=== PATIENT | female | born 1985 | race Caucasian/White ===

== ENCOUNTER 2024-06-12 01:01 | Emergency (ER) | payer MEDICAID ==
[~2024-06-12] VITALS: Ht 165.1 cm; Wt 75.0 kg
[2024-06-12 01:07] VITALS: BP 120/62; PULSE 57; TEMP 98.6; O2SAT 100
[2024-06-12] MEDS: bacitracin 15gm ointment TP ONE (02:23)
[2024-06-12] MEDS: TETanus/Pertussis (Acell)/Diphther VAC/PF (Tdap-Adult) 0.5ml syringe IMVAC ONE (02:26)
[2024-06-12 02:30] VITALS: RESP 16
== END 2024-06-12 02:28 | disposition home or self-care (01) ==
LOC: ER 01:02
DX: S71.112A Laceration without foreign body, left thigh, initial encounter (principal); Z88.1 Allergy status to other antibiotic agents; Z88.5 Allergy status to narcotic agent; X58.XXXA Exposure to other specified factors, initial encounter; Y93.89 Activity, other specified; Y92.89 Other specified places as the place of occurrence of the external cause; Y99.8 Other external cause status
CPT/HCPCS: 12002; 90471; 90715; 99283